=== PATIENT | male | born 1990 | race African-American/Black ===

== ENCOUNTER 2018-08-27 19:44 | Emergency (ER) | payer OTHER ==
[~2018-08-27] VITALS: Ht 170.2 cm; Wt 156.9 kg
[2018-08-27] MEDS ORDERED: HYDRALAZINE 2525 MG PO (20:00)
[2018-08-27] MEDS ORDERED: COZAAR 25 MG TA25 M1 PO (20:00)
[2018-08-27] MEDS ORDERED: COREG25 MG PO (20:07)
[2018-08-27] MEDS ORDERED: ATORVASTATIN CA40 MG PO (20:08)
[2018-08-27 20:36] LABS: ABSOLUTE NEUTROPHILS 7.3 thou/uL (1.4-8.2); BASOPHILS 0.3 % (0.0-2.0); EOSINOPHILS 0.5 % (0.0-3.0); HEMATOCRIT 39.1 % (42.0-52.0); HEMOGLOBIN 12.8 gm/dL (14.0-18.0); LYMPHOCYTES 22.8 % (24.0-44.0); MCH 26.2 pg (26.0-34.0); MCHC 32.7 g/dL (28.0-37.0); MCV 80.1 fL (80.0-100.0); MONOCYTES 10.1 % (1.0-8.0); PLATELET COUNT 182 thou/uL (150-400); POLYS 66.3 % (36.0-66.0); RBC 4.89 mil/uL (4.50-6.00); RDW 13.8 % (10.5-14.5); WBC 10.9 thou/uL (4.0-11.0)
[2018-08-27 20:43] LABS: CALCIUM 8.7 mg/dL (8.5-10.1); CREATININE 1.4 mg/dL (0.7-1.3); POTASSIUM 3.7 mmol/L (3.5-5.1)
[2018-08-27 20:48] LABS: TOTAL BILIRUBIN 0.3 mg/dL (<0.1-1.0); TOTAL PROTEIN 7.7 g/dL (6.4-8.2)
[2018-08-27] MEDS ORDERED: DOXYCYCLINE 10100 MG PO (22:09)
[2018-08-27] MEDS ORDERED: PROCTOCORT30 MG RECTAL (22:09)
[2018-08-27] MEDS ORDERED: TRAMADOL 50 MG50 MG PO ×2 (22:09→22:12)
[2018-08-27] MEDS ORDERED: PROCTOFOAM-HC F10 GM TOP (22:09)
[2018-08-27 22:43] VITALS: BP 197/106
== END 2018-08-27 22:43 | disposition home or self-care (01) ==
LOC: ER 19:44
PROVIDERS: Physician Assistant
DX: K62.89 Other specified diseases of anus and rectum (principal); I10 Essential (primary) hypertension; E11.9 Type 2 diabetes mellitus without complications; E66.9 Obesity, unspecified; Z68.43 Body mass index [BMI] 50.0-59.9, adult; Z86.73 Personal history of transient ischemic attack (TIA), and cerebral infarction without residual deficits